=== PATIENT | female | born 1990 | race Caucasian/White ===

== ENCOUNTER 2016-08-14 18:21 | Emergency (ER) | payer MEDICAID ==
[~2016-08-14] VITALS: Ht 160 cm; Wt 68.9 kg
[~2016-08-14 18:21] MED LIST: ALBU8.5H5 INH; AZIT500T PO; AZIT500T4 PO; CEFD300C2 PO; GUAI600T22 PO; IBUP200T5 PO; KETO10TA PO; MAG30ORA PO; METH750T2 PO; METH750T87 PO; ONDA-39 PO; PANT40TA3 PO
[2016-08-14] MEDS ORDERED: LORazepam 2 MG/ML, 1ML ONE (19:09)
[2016-08-14] MEDS ORDERED: KETOROLAC 30 MG/1 ML ONE (19:09)
[2016-08-14] MEDS ORDERED: SODIUM CHLORIDE FLUSH 10ML SYR IVF ONE (19:30)
[2016-08-14] MEDS ORDERED: LORazepam 2 MG/ML, 1ML IVPush ONE (19:30)
[2016-08-14] MEDS ORDERED: KETOROLAC 30 MG/1 ML IVPush ONE (19:30)
[2016-08-14 19:34] LABS: BLOOD UREA NITROGEN 22 mg/dL (7-18)
[2016-08-14 19:38] LABS: IS PT STATUS REG ER OR PRE ER? YES
[2016-08-14 19:53] LABS: HEMOGLOBIN 13.6 g/dL (11.7-16.4)
[2016-08-14] MEDS ORDERED: HYDROmorphone 1 MG/ML, 1ML IVPush PRN (20:00)
[2016-08-14] MEDS ORDERED: ONDANSETRON 2MG/ML, 2ML IVPush ONE (20:00)
[2016-08-14] MEDS ORDERED: HYDROmorphone 1 MG/ML, 1ML ONE (20:02)
[2016-08-14] MEDS ORDERED: ONDANSETRON 2MG/ML, 2ML ONE (20:02)
[2016-08-14 21:16] VITALS: BP 112/70
== END 2016-08-14 21:22 | disposition home or self-care (01) ==
LOC: ED 20:58
DX: M94.0 Chondrocostal junction syndrome [Tietze] (principal); R11.0 Nausea; I25.2 Old myocardial infarction
CPT/HCPCS: 36415; 71010; 80048; 82040; 84484; 85025; 93005; 96374; 96375; 99285; J1170; J1885; J2060; J2405

== ENCOUNTER 2016-11-12 08:53 | Emergency (ER) | payer MEDICAID ==
[~2016-11-12] VITALS: Ht 160 cm; Wt 68.5 kg
[~2016-11-12 08:53] MED LIST changes: -AZIT500T4 PO; +AZIT500T77 PO; -CEFD300C2 PO; +CEFD300C37 PO
[2016-11-12 08:55] VITALS: BP 108/76
[2016-11-12] MEDS ORDERED: PHENAZOPYRIDINE 200 MG TABLET ONE (09:14)
[2016-11-12] MEDS ORDERED: ONDANSETRON ODT 4 MG ONE ×2 (09:14→09:19)
[2016-11-12] MEDS ORDERED: ONDANSETRON ODT 4 MG PO ONE (09:30)
[2016-11-12] MEDS ORDERED: PHENAZOPYRIDINE 200 MG TABLET PO ONE (09:30)
[2016-11-12 09:43] LABS: BLOOD UREA NITROGEN 19 mg/dL (7-18)
== END 2016-11-12 10:24 | disposition home or self-care (01) ==
LOC: ED 09:14
DX: N30.00 Acute cystitis without hematuria (principal); M54.5 Low back pain; I25.2 Old myocardial infarction
CPT/HCPCS: 36415; 80048; 81001; 82040; 84703; 85025; 87077; 87086; 99284; Q0162

== ENCOUNTER 2016-12-28 02:24 | Emergency (ER) | payer MEDICAID ==
[~2016-12-28] VITALS: Ht 162.6 cm; Wt 67.8 kg
[2016-12-28] MEDS ORDERED: MORPHINE SULFATE 4 MG/ML, 1ML ONE ×2 (03:30→03:59)
[2016-12-28] MEDS ORDERED: SODIUM CHLORIDE FLUSH 10ML SYR IVF ONE (03:30)
[2016-12-28] MEDS ORDERED: ONDANSETRON 2MG/ML, 2ML IVPush ONE (03:30)
[2016-12-28] MEDS ORDERED: ASPIRIN 81 MG TABLET CHEW PO ONE (03:30)
[2016-12-28] MEDS ORDERED: ONDANSETRON 2MG/ML, 2ML ONE (03:30)
[2016-12-28] MEDS ORDERED: SODIUM CHLORIDE 0.9% 1,000ML IVBOLUS ONE ×2 (03:30→05:00)
[2016-12-28] MEDS ORDERED: ASPIRIN 81 MG TABLET CHEW ONE (03:30)
[2016-12-28 03:31] LABS: HEMATOCRIT 40.5 % (34.6-47.8); HEMOGLOBIN 14.1 g/dL (11.7-16.4); WHITE BLOOD COUNT 7.4 x10^3/uL (3.4-10)
[2016-12-28] MEDS: MORPHINE SULFATE 4 MG/ML, 1ML IVPush PRN ×2 (03:33→04:06)
[2016-12-28 03:42] LABS: BLOOD UREA NITROGEN 12 mg/dL (7-18)
[2016-12-28 03:47] LABS: IS PT STATUS REG ER OR PRE ER? YES
[2016-12-28 03:49] LABS: DIFF TOTAL CELLS COUNTED 100 CELL DIFF
[2016-12-28 03:52] LABS: VERIFY COUNTS? YES
[2016-12-28 03:53] LABS: ANISOCYTOSIS 1+; HYPOCHROMIA 1+
[2016-12-28] MEDS ORDERED: KETOROLAC 30 MG/1 ML ONE (04:41)
[2016-12-28] MEDS ORDERED: KETOROLAC 30 MG/1 ML IVPush ONE (05:00)
[2016-12-28] MEDS ORDERED: L.E.T SOLUTION TP ONE (05:06)
[2016-12-28 05:12] VITALS: BP 108/64
== END 2016-12-28 05:48 | disposition home or self-care (01) ==
LOC: ED 04:05
DX: R07.2 Precordial pain (principal); H81.10 Benign paroxysmal vertigo, unspecified ear; I45.6 Pre-excitation syndrome; I25.2 Old myocardial infarction
CPT/HCPCS: 36415; 71010; 80048; 82040; 83880; 84484; 84703; 85025; 85651; 86140; 93005; 96361; 96374; 96375; 96376; 99285; J1885; J2405; J7030

== ENCOUNTER 2016-12-31 21:40 | Emergency (ER) | payer MEDICAID ==
[~2016-12-31] VITALS: Ht 160 cm; Wt 68.5 kg
[~2016-12-31 21:40] MED LIST changes: +AZIT500T5 PO; -AZIT500T77 PO; -GUAI600T22 PO; +GUAI600T31 PO; +IBUP-1484 PO; -IBUP200T5 PO; -ONDA-39 PO; +ONDA4TAB12 PO
[2016-12-31] MEDS ORDERED: FAMOTIDINE 20 MG TABLET PO ONE (23:00)
[2016-12-31] MEDS ORDERED: KETOROLAC 30 MG/1 ML ONE (23:19)
[2016-12-31] MEDS ORDERED: FAMOTIDINE 20 MG TABLET ONE (23:20)
[2016-12-31] MEDS ORDERED: KETOROLAC 30 MG/1 ML IM ONE (23:30)
[2016-12-31 23:54] LABS: HEMOGLOBIN 14.3 g/dL (11.7-16.4); WHITE BLOOD COUNT 8.8 x10^3/uL (3.4-10)
[2017-01-01 00:04] LABS: ASPARTATE AMINO TRANSFERASE 44 U/L (15-37); BLOOD UREA NITROGEN 19 mg/dL (7-18)
[2017-01-01 00:12] LABS: IS PT STATUS REG ER OR PRE ER? YES
[2017-01-01 00:26] LABS: DIFF TOTAL CELLS COUNTED 100 CELL DIFF
[2017-01-01 00:29] LABS: VERIFY COUNTS? YES
[2017-01-01 00:30] LABS: ANISOCYTOSIS 1+
[2017-01-01 00:56] VITALS: BP 107/64
== END 2017-01-01 00:56 | disposition home or self-care (01) ==
LOC: ED 23:59
DX: R07.89 Other chest pain (principal); F17.200 Nicotine dependence, unspecified, uncomplicated; I25.2 Old myocardial infarction; R10.10 Upper abdominal pain, unspecified
CPT/HCPCS: 36415; 71010; 80053; 83690; 84484; 85025; 93005; 96372; 99285; J1885

== ENCOUNTER 2017-01-31 23:59 | Emergency (ER) | payer MEDICAID ==
[~2017-01-31] VITALS: Ht 160 cm; Wt 69.8 kg
[2017-02-01] MEDS ORDERED: PHENAZOPYRIDINE 200 MG TABLET PO ONE (01:00)
[2017-02-01] MEDS ORDERED: PHENAZOPYRIDINE 200 MG TABLET ONE (01:06)
[2017-02-01 01:59] LABS: HCG UR OBC PASS
[2017-02-01 02:02] VITALS: BP 101/51
[2017-02-01] MEDS ORDERED: SULFAMETH./TRIMETHOPRIM DS 800MG/160MG TABLET ONE (02:23)
[2017-02-01] MEDS ORDERED: SULFAMETH./TRIMETHOPRIM DS 800MG/160MG TABLET PO ONE (02:30)
== END 2017-02-01 02:32 | disposition home or self-care (01) ==
LOC: ED 02-01 01:08
DX: N30.00 Acute cystitis without hematuria (principal); I25.2 Old myocardial infarction
CPT/HCPCS: 81001; 81025; 87077; 87086; 87186; 99284

== ENCOUNTER 2017-04-18 10:23 | Emergency (ER) | payer MEDICAID ==
[~2017-04-18] VITALS: Ht 160 cm; Wt 69.8 kg
[2017-04-18] MEDS ORDERED: ONDANSETRON ODT 4 MG PO ONE (11:00)
[2017-04-18] MEDS ORDERED: ONDANSETRON ODT 4 MG ONE (11:05)
[2017-04-18] MEDS ORDERED: ONDANSETRON 2MG/ML, 2ML ONE (12:41)
[2017-04-18] MEDS ORDERED: KETOROLAC 30 MG/1 ML ONE (12:41)
[2017-04-18] MEDS ORDERED: FAMOTIDINE 20 MG/2 ML ONE (12:42)
[2017-04-18 12:55] LABS: HEMOGLOBIN 13.9 g/dL (11.7-16.4); WHITE BLOOD COUNT 8.1 x10^3/uL (3.4-10)
[2017-04-18] MEDS ORDERED: ONDANSETRON 2MG/ML, 2ML IVPush ONE (13:00)
[2017-04-18] MEDS ORDERED: FAMOTIDINE 20 MG/2 ML IVP ONE (13:00)
[2017-04-18] MEDS ORDERED: KETOROLAC 30 MG/1 ML IVPush ONE (13:00)
[2017-04-18 13:08] LABS: BLOOD UREA NITROGEN 17 mg/dL (7-18)
[2017-04-18 13:14] LABS: ASPARTATE AMINO TRANSFERASE 19 U/L (15-37)
[2017-04-18 13:15] LABS: IS PT STATUS REG ER OR PRE ER? YES
[2017-04-18] MEDS ORDERED: SODIUM CHLORIDE FLUSH 10ML SYR IVF ONE (14:00)
[2017-04-18] MEDS ORDERED: SODIUM CHLORIDE 0.9% 1,000ML IVBOLUS ONE (14:00)
[2017-04-18] MEDS ORDERED: SODIUM CHLORIDE 0.9% 1,000 ML IV ONE (14:00)
[2017-04-18 14:37] VITALS: BP 96/48
== END 2017-04-18 14:39 | disposition home or self-care (01) ==
LOC: ED 12:41
DX: R11.2 Nausea with vomiting, unspecified (principal); R07.89 Other chest pain; R10.32 Left lower quadrant pain; F17.200 Nicotine dependence, unspecified, uncomplicated
CPT/HCPCS: 36415; 74022; 80053; 83690; 84484; 84703; 85025; 93005; 96361; 96374; 96375; 99285; J1885; J2405; J7030; Q0162; S0028

== ENCOUNTER 2017-10-21 17:37 | Emergency (ER) | payer MEDICAID ==
[~2017-10-21] VITALS: Ht 160 cm; Wt 72.0 kg
[2017-10-21 18:08] LABS: BASOPHILS # (AUTO) 0.02 x10^3/uL (0-0.1); BASOPHILS % (AUTO) 0 % (0-1); EOSINOPHILS # (AUTO) 0.15 x10^3/uL (0-0.4); EOSINOPHILS % (AUTO) 2 % (1-7); LYMPHOCYTES # (AUTO) 3.35 x10^3/uL (1-3.4); LYMPHOCYTES % (AUTO) 42 % (22-44); MD NO; MEAN CORPUSCULAR HEMOGLOBIN 33.3 pg (27.0-34.8); MEAN CORPUSCULAR HGB CONC 34.2 g/dL (32.4-35.8); MEAN CORPUSCULAR VOLUME 97.4 fL (80-100); MEAN PLATELET VOLUME 7.9 fL (7.4-10.4); MONOCYTES % (AUTO) 5 % (2-9); NEUTROPHILS # (AUTO) 4.03 x10^3/uL (1.8-6.8); NEUTROPHILS % (AUTO) 51 % (42-75); PLATELET COUNT 274 x10^3/uL (130-400); RED BLOOD COUNT 4.01 x10^6/uL (3.82-5.3); RED CELL DISTRIBUTION WIDTH 12.2 % (9.6-15.2)
[2017-10-21 18:22] LABS: ALBUMIN 3.8 g/dL (3.4-5.0); ANION GAP 5 mmol/L (5-15); CALCIUM 8.6 mg/dL (8.5-10.1); CHLORIDE 110 mmol/L (98-107); CREATININE 1.12 mg/dL (0.55-1.02)
[2017-10-21 18:26] LABS: TROPONIN I < 0.015 ng/mL (0.000-0.045)
[2017-10-21] MEDS ORDERED: PROMETHAZINE 25 MG/ML, 1ML IM ONE (18:30)
[2017-10-21 18:59] LABS: ALBUMIN 3.8 g/dL (3.4-5.0); BILIRUBIN, DIRECT 0.1 mg/dL (0.1-0.2)
[2017-10-21] MEDS ORDERED: HYDROcodone/APAP 5/325 TABLET PO ONE (19:00)
[2017-10-21] MEDS ORDERED: MAALOX/HYOSCYAMINE/LIDOCAINE 45 ML BTL PO ONE (19:00)
[2017-10-21] MEDS ORDERED: FAMOTIDINE 20 MG TABLET PO ONE (19:00)
[2017-10-21 19:01] LABS: BILIRUBIN,INDIRECT 0.1 mg/dL (0.0-2.0); BILIRUBIN,TOTAL 0.2 mg/dL (0.2-1.0); TOTAL PROTEIN 7.1 g/dL (6.4-8.2)
[2017-10-21] MEDS ORDERED: PROMETHAZINE 25 MG/ML, 1ML ONE (19:11)
[2017-10-21] MEDS ORDERED: FAMOTIDINE 20 MG TABLET ONE (19:12)
[2017-10-21] MEDS ORDERED: HYDROcodone/APAP 5/325 TABLET ONE (19:12)
[2017-10-21] MEDS ORDERED: MAALOX/HYOSCYAMINE/LIDOCAINE 45 ML BTL ONE (19:13)
[2017-10-21 19:22] VITALS: BP 108/49
[2017-10-21] MEDS ORDERED: LORazepam 1MG TABLET ONE (19:28)
[2017-10-21] MEDS ORDERED: LORazepam 1MG TABLET PO ONE (19:30)
== END 2017-10-21 19:59 | disposition home or self-care (01) ==
LOC: ED 19:47
DX: R07.89 Other chest pain (principal); E86.0 Dehydration
CPT/HCPCS: 36415; 71045; 80048; 80076; 82040; 83690; 84484; 85025; 93005; 96372; 99285; J2550

== ENCOUNTER 2018-01-12 23:54 | Emergency (ER) | payer MEDICAID ==
[~2018-01-12] VITALS: Ht 160 cm; Wt 63.6 kg
[2018-01-12 23:58] VITALS: BP 107/67
[2018-01-13] MEDS ORDERED: KETOROLAC 30 MG/1 ML ONE (00:28)
[2018-01-13] MEDS ORDERED: KETOROLAC 30 MG/1 ML IM ONE (00:30)
[2018-01-13 00:42] LABS: BASOPHILS # (AUTO) 0.02 x10^3/uL (0-0.1); BASOPHILS % (AUTO) 0 % (0-1); EOSINOPHILS # (AUTO) 0.16 x10^3/uL (0-0.4); EOSINOPHILS % (AUTO) 2 % (1-7); LYMPHOCYTES # (AUTO) 3.52 x10^3/uL (1-3.4); LYMPHOCYTES % (AUTO) 50 % (22-44); MD NO; MEAN CORPUSCULAR HEMOGLOBIN 33.8 pg (27.0-34.8); MEAN CORPUSCULAR HGB CONC 35.2 g/dL (32.4-35.8); MEAN CORPUSCULAR VOLUME 96.1 fL (80-100); MEAN PLATELET VOLUME 7.7 fL (7.4-10.4); MONOCYTES # (AUTO) 0.46 x10^3/uL (0.2-0.8); MONOCYTES % (AUTO) 7 % (2-9); NEUTROPHILS # (AUTO) 2.87 x10^3/uL (1.8-6.8); NEUTROPHILS % (AUTO) 41 % (42-75); PLATELET COUNT 256 x10^3/uL (130-400); RED BLOOD COUNT 4.05 x10^6/uL (3.82-5.3); RED CELL DISTRIBUTION WIDTH 12.4 % (9.6-15.2)
[2018-01-13 00:54] LABS: ALBUMIN 3.5 g/dL (3.4-5.0); ANION GAP 4 mmol/L (5-15); CALCIUM 8.4 mg/dL (8.5-10.1); CHLORIDE 113 mmol/L (98-107); CREATININE 0.94 mg/dL (0.55-1.02)
== END 2018-01-13 01:51 | disposition home or self-care (01) ==
LOC: ED 23:59
DX: L03.032 Cellulitis of left toe (principal); I25.2 Old myocardial infarction
CPT/HCPCS: 36415; 73660; 80048; 82040; 84550; 85025; 96372; 99285; J1885

== ENCOUNTER 2018-02-15 03:41 | Emergency (ER) | payer MEDICAID ==
[~2018-02-15] VITALS: Ht 160 cm; Wt 71.3 kg
[2018-02-15 03:45] VITALS: BP 108/72
[2018-02-15] MEDS ORDERED: DIPHENHYDRAMINE 50 MG/ML, 1ML IM ONE (04:30)
[2018-02-15] MEDS ORDERED: KETOROLAC 30 MG/1 ML IM ONE (04:30)
[2018-02-15] MEDS ORDERED: ONDANSETRON ODT 4 MG PO ONE (04:30)
[2018-02-15] MEDS ORDERED: ONDANSETRON ODT 4 MG ONE (04:40)
[2018-02-15] MEDS ORDERED: DIPHENHYDRAMINE 50 MG/ML, 1ML ONE (04:41)
[2018-02-15] MEDS ORDERED: KETOROLAC 30 MG/1 ML ONE (04:41)
== END 2018-02-15 06:10 | disposition home or self-care (01) ==
LOC: ED 06:05
DX: R51 Headache (principal); I25.2 Old myocardial infarction
CPT/HCPCS: 96372; 99284; J1200; J1885; Q0162

== ENCOUNTER 2018-09-30 23:28 | Emergency (ER) | payer SELFPAY ==
[~2018-09-30] VITALS: Ht 160 cm; Wt 68.0 kg
--- NOTE | 2018-09-30 23:39 | NUR ---
C/o dizziness for 2 weeks and cpx5 days L side and arm w/ associated sob. States extensive cardiac hx. Unsure of WI in the past. per triage note
[2018-10-01] MEDS ORDERED: KETOROLAC 30 MG/1 ML IVPush ONE
[2018-10-01] MEDS ORDERED: LORazepam 2 MG/ML, 1ML IVPush ONE
[2018-10-01] MEDS ORDERED: KETOROLAC 30 MG/1 ML ONE (00:07)
[2018-10-01] MEDS ORDERED: LORazepam 2 MG/ML, 1ML ONE (00:08)
[2018-10-01 00:29] LABS: BASOPHILS # (AUTO) 0.02 x10^3/uL (0-0.1); BASOPHILS % (AUTO) 0 % (0-1); EOSINOPHILS # (AUTO) 0.22 x10^3/uL (0-0.4); EOSINOPHILS % (AUTO) 3 % (1-7); LYMPHOCYTES # (AUTO) 3.89 x10^3/uL (1-3.4); LYMPHOCYTES % (AUTO) 53 % (22-44); MD NO; MEAN CORPUSCULAR HEMOGLOBIN 33.3 pg (27.0-34.8); MONOCYTES # (AUTO) 0.38 x10^3/uL (0.2-0.8); MONOCYTES % (AUTO) 5 % (2-9); NEUTROPHILS # (AUTO) 2.82 x10^3/uL (1.8-6.8); NEUTROPHILS % (AUTO) 39 % (42-75); PLATELET COUNT 287 x10^3/uL (130-400); RED BLOOD COUNT 4.09 x10^6/uL (3.82-5.3); RED CELL DISTRIBUTION WIDTH 12.8 % (9.6-15.2)
[2018-10-01 00:41] LABS: ALANINE AMINOTRANSFERASE 26 U/L (12-78); ALBUMIN 3.6 g/dL (3.4-5.0); ANION GAP 9 mmol/L (5-15); CALCIUM 8.6 mg/dL (8.5-10.1); CHLORIDE 113 mmol/L (98-107); CREATININE 0.96 mg/dL (0.55-1.02)
[2018-10-01] MEDS ORDERED: ONDANSETRON 2MG/ML, 2ML ONE (00:45)
[2018-10-01] MEDS ORDERED: MORPHINE SULFATE 4 MG/ML, 1ML ONE ×2 (00:45→01:23)
[2018-10-01 00:46] LABS: ALKALINE PHOSPHATASE 71 U/L (45-117); BILIRUBIN,TOTAL 0.2 mg/dL (0.2-1.0); TOTAL PROTEIN 6.6 g/dL (6.4-8.2); TROPONIN I < 0.015 ng/mL (0.000-0.045)
[2018-10-01] MEDS: MORPHINE SULFATE 4 MG/ML, 1ML IVPush PRN ×2 (00:48→01:24)
--- NOTE | 2018-10-01 00:52 | NUR ---
medicated with morphine and zofran iv per pt's pain
[2018-10-01] MEDS ORDERED: ONDANSETRON 2MG/ML, 2ML IVPush ONE (01:00)
--- NOTE | 2018-10-01 01:28 | NUR ---
given 2nd dose of morphine iv per pt's request pain meds will discharge pt home
--- NOTE | 2018-10-01 01:41 | NUR ---
given all dc instruction pt understood pt will follow up with cardiology as soon as possible iv was out friend at bed side for riding pt home vss stable pt walked out for check out
[2018-10-01 01:43] VITALS: BP 109/70
== END 2018-10-01 02:23 | disposition home or self-care (01) ==
LOC: ED 23:59
DX: R07.89 Other chest pain (principal); F17.200 Nicotine dependence, unspecified, uncomplicated; I25.2 Old myocardial infarction
CPT/HCPCS: 36415; 71045; 80053; 84484; 84703; 85025; 93005; 96374; 96375; 96376; 99284; J1885; J2060; J2270; J2405

== ENCOUNTER 2019-04-04 18:41 | Emergency (ER) | payer SELFPAY ==
[~2019-04-04] VITALS: Ht 160 cm; Wt 68.9 kg
[~2019-04-04 18:41] MED LIST changes: +AZIT500T10 PO; -AZIT500T5 PO; -IBUP-1484 PO; +IBUP-1902 PO
[2019-04-04 19:21] VITALS: BP 102/62
--- NOTE | 2019-04-04 19:22 | NUR ---
PT HERE WITH C/O FEVER DESPITE TYLENOL, GENERALIZED BODY ACHES, ANXIETY AND REPRODUCABLE LEFT SIDED CHEST PAIN WITH DEEP INSPIRATION. PT AAO X 4, NAD, ROOM AIR, CALL LIGHT WITHIN REACH. PT HAS EXTENSIVE CARDIAC HX. PT DRESSED IN GOWN AND ATTACHED TO MONITOR. PA AT BEDSIDE FOR EXAM.
[2019-04-04] MEDS ORDERED: KETOROLAC 30 MG/1 ML ONE (19:29)
[2019-04-04] MEDS ORDERED: KETOROLAC 30 MG/1 ML IM ONE (19:30)
--- NOTE | 2019-04-04 19:31 | NUR ---
PT MEDICATED PER ORDERS. PT REFUSING CXR AND LABS UNTIL PAIN MEDICINE "KICKS IN."
--- NOTE | 2019-04-04 19:39 | NUR ---
XRAY AT BEDSIDE.
[2019-04-04 19:57] LABS: BASOPHILS # (AUTO) 0.02 x10^3/uL (0-0.1); BASOPHILS % (AUTO) 1 % (0-1); EOSINOPHILS # (AUTO) 0.01 x10^3/uL (0-0.4); EOSINOPHILS % (AUTO) 0 % (1-7); LYMPHOCYTES # (AUTO) 0.99 x10^3/uL (1-3.4); LYMPHOCYTES % (AUTO) 32 % (22-44); MD NO; MEAN CORPUSCULAR HGB CONC 33.3 g/dL (32.4-35.8); MEAN CORPUSCULAR VOLUME 99.1 fL (80-100); MEAN PLATELET VOLUME 7.6 fL (7.4-10.4); MONOCYTES # (AUTO) 0.33 x10^3/uL (0.2-0.8); MONOCYTES % (AUTO) 11 % (2-9); NEUTROPHILS # (AUTO) 1.75 x10^3/uL (1.8-6.8); NEUTROPHILS % (AUTO) 56 % (42-75); PLATELET COUNT 219 x10^3/uL (130-400); RED CELL DISTRIBUTION WIDTH 12.6 % (9.6-15.2)
--- NOTE | 2019-04-04 19:57 | NUR ---
THIS RN CALLED TO ROOM, PT STATES MEDICATION NOT WORKING, REQUESTING STRONGER PAIN MEDS. PA NOTIFIED.
[2019-04-04 20:05] LABS: RAPID INFLUENZA A Negative (Negative); RAPID INFLUENZA B POSITIVE (Negative)
[2019-04-04 20:10] LABS: ALANINE AMINOTRANSFERASE 28 U/L (12-78); ALBUMIN 3.7 g/dL (3.4-5.0); ANION GAP 6 mmol/L (5-15); CALCIUM 8.6 mg/dL (8.5-10.1); CHLORIDE 111 mmol/L (98-107); CREATININE 0.98 mg/dL (0.55-1.02)
[2019-04-04 20:14] LABS: ALKALINE PHOSPHATASE 53 U/L (45-117); BILIRUBIN,TOTAL 0.3 mg/dL (0.2-1.0); TROPONIN I < 0.015 ng/mL (0.000-0.045)
[2019-04-04] MEDS ORDERED: ONDANSETRON ODT 8 MG ONE (20:19)
[2019-04-04] MEDS ORDERED: OSELTAMIVIR 75 MG CAPSULE ONE (20:19)
[2019-04-04] MEDS ORDERED: HYDROcodone/APAP 5/325 TABLET ONE (20:20)
--- NOTE | 2019-04-04 20:24 | NUR ---
PT MEDICATED PER ORDERS.
[2019-04-04] MEDS ORDERED: HYDROcodone/APAP 5/325 TABLET PO ONE (20:30)
[2019-04-04] MEDS ORDERED: ONDANSETRON ODT 8 MG PO PRN (20:30)
[2019-04-04] MEDS ORDERED: OSELTAMIVIR 75 MG CAPSULE PO ONE (20:30)
--- NOTE | 2019-04-04 20:54 | NUR ---
Patient/Caregiver given discharge instructions and they have confirmed that they understand the instructions. Patient ambulatory with steady gait.
== END 2019-04-04 20:56 | disposition home or self-care (01) ==
LOC: ED 20:46
DX: J10.1 Influenza due to other identified influenza virus with other respiratory manifestations (principal); R52 Pain, unspecified; R11.0 Nausea; R53.83 Other fatigue; R09.81 Nasal congestion
CPT/HCPCS: 36415; 71045; 80053; 84484; 85025; 87081; 87400; 87880; 93005; 96372; 99284; J1885; Q0162

== ENCOUNTER 2020-10-18 18:13 | Emergency (ER) | payer MEDICAID ==
[~2020-10-18] VITALS: Ht 160 cm; Wt 67.6 kg
[~2020-10-18 18:13] MED LIST changes: +METH-640 PO; -METH750T2 PO; +ONDA-89 PO; -ONDA4TAB12 PO
[2020-10-18 18:22] VITALS: BP 110/56
--- NOTE | 2020-10-18 19:33 | NUR ---
PT BROUGHT BACK TO ROOM FROM LOBBY. PT CO RIGHT EYE PAIN AND REDNESS SINCE THIS MORNING. PT STATED THAT IT IS GETTING DIFFICULT TO SEE OUT OF RIGHT EYE. OPTHALMOLOGIST AND ER MD AT BEDSIDE.
--- NOTE | 2020-10-18 20:05 | NUR ---
DISCHARGE INSTRUCTIONS REVIEWED WITH PT. ALL QUESTIONS ANSWERED AT THIS TIME.
== END 2020-10-18 20:07 | disposition home or self-care (01) ==
LOC: ED 18:43
DX: H57.11 Ocular pain, right eye (principal); I25.2 Old myocardial infarction; Z87.891 Personal history of nicotine dependence
CPT/HCPCS: 99283